=== PATIENT | female | born 1990 | race Caucasian/White ===

== ENCOUNTER 2025-04-07 15:58 | Inpatient (IN) ==
[2025-04-07] MEDS: OXYTOCIN 30 UNITS/NSS 30 UNITS/500 ML BAG IV PRN (16:00)
[2025-04-07] MEDS ORDERED: SODIUM CHLORIDE 0.9% 100 ML IV PRN (16:03)
[2025-04-07] MEDS ORDERED: HYDROCORTISONE ACETATE 25 MG SUPP PR PRN (16:06)
[2025-04-07] MEDS ORDERED: DIPHTHER/TETAN/PERTUS Vaccine (Tdap, Adol/Adult) 0.5mL IM ONE (16:06)
[2025-04-07] MEDS ORDERED: ACETAMINOPHEN 325 MG TAB PO PRN (16:06)
[2025-04-07] MEDS ORDERED: bisacodyL 10 MG SUPP PR PRN (16:06)
[2025-04-07] MEDS ORDERED: Patient's ALLERGY Info needs ENTERED STA (16:08)
[2025-04-07] MEDS: LACTATED RINGER'S 1,000 ML IV SCH (16:15)
--- NOTE | 2025-04-07 16:21 | History & Physical Report ---
Date of Service April 07, 2025 Assessment & Plan (1) Vaginal delivery: (2) hemorrhage: Plan It appears that the pph is under control at this point. ff at below u. She has a tender abd likely secondary to massage. Dilute pitocin hanging presently. Currently no need for further meds. Will run fluids, monitor vitals and uop. Check cbc and T&C for two units, on hold. Hemodynamically stable currently. History of Present Illness Chief Complaint: brought in by ambulance for pph Primary Care Provider: NO PCP Patient is a 34yowf, 7th baby, [facility]. Patient arrives by ambulance for pph. Patient was delivered by relay engineer at approximately 12 today, uncomplicated delivery, no tear, male infant. Placenta delivered without issues as well. Things were going well per certified ski patroller and bleeding controlled until she was giving pp instructions and got patient up to go to the bathroom and she dropped a large amount of blood and clot, estimated 800cc. She then cleared lots of clot from the uterus. she did not appreciate any retained products and confirmed that the placenta appeared intact. She received 400mcg cytotec po and im pitocin. She called the ambulance. By the time they arrived, the bleeding was better controlled. EMS notes her vitals are stable, was initially tachycardic, but improved and normal now. normotensive. EMS notes ebl is 1800cc. He notes she was given methergine (?). Patient notes that she is feeling well. No n/v, cp/sob, dizziness. Overall feeling better. No records available at this time. transportation coordinator is with her and notes the was uncomplicated. notes nkda meds--mag, pnv Allergies Allergy/AdvReac Type Severity Reaction Status Date / Time No Known Drug Allergies Allergy Unknown Verified 04/07/25 16:15 Patient History Medical History (Updated 04/07/25 @ 16:24 by Radha Grigsby MD, FACOG) No pertinent past medical history Surgical History (Updated 04/07/25 @ 16:24 by Radha Grigsby MD, FACOG) No pertinent past surgical history OB History This is her seventh vaginal delivery [facility] History noncontributory Physical Exam Physical Exam: bp 123/70, pulse 77 Constitutional: WD/WN, vitals as above Gastrointestinal (Abdomen): ff/nt below u Psychiatric: A+Ox3, euthymic affect Genitourinary: the perinuem is covered in blood, she is cleaned. fundal pressure gives just a trickle of blood. exam of the vagina reveals no clot, cervix is 3-4cm, can feel inside it and do not appreciate any clot. Coding Level of Care Code 01270 INT INP/OBS CARE 2/55MIN Diagnoses Vaginal delivery O80 hemorrhage O72.1
[2025-04-07] MEDS: IBUPROFEN 600 MG TAB PO PRN (16:24)
[2025-04-07 16:42] LABS: Hematocrit (blood only) 33.2 % (37.0-47.0); Hemoglobin 11.6 g/dl (12.0-16.0); Mean Corpuscular Hgb Conc 34.9 g/dL (32.0-36.0); Mean Corpuscular Volume 91.5 fL (80.0-100.0); Mean Platelet Volume 10.4 fL (9.4-12.4); Platelet Count 240 K/uL (130-400); RDW Coefficient of Variation 13.5 % (11.5-14.5); RDW Standard Deviation 45.1 fL (36.4-46.3); Red Blood Count 3.63 M/uL (4.20-5.40); White Blood Count 17.31 K/ul (4.8-10.8)
[2025-04-07 17:18] LABS: INR 0.9 (0.9-1.1); Partial Thromboplastin Ratio 0.9; Partial Thromboplastin Time 25 Seconds (21-31); Prothrombin Time 9.8 Seconds (9.0-12.0)
--- NOTE | 2025-04-07 17:41 | Obstetrical Progress Note ---
Date of Service April 07, 2025 Assessment & Plan (1) hemorrhage: (2) Vaginal delivery: Plan Patient doing very well. Hemodynamically stable. Minimal bleeding at this point. Asking when they can be d/c. Discussed it has only been 4 hours since she had her bleeding episode and although things are looking reassuring, I would prefer to watch her overnight and check cbc in the am. However, would be willing to compromise with them staying for 6 hours (10 pm) and if all looks good d/c at that time. She can of course leave at any time, but if she leaves now I would have her sign out ama. She expresses understanding. She is agreeable to staying til 10. Would like her to have an antibiotic to cover as there was several sweeps of her uterus to decrease her risk of infection, and she agrees. Subjective Patient is sore but otherwise doing well. They are wanting to leave [place]. hgb was 11.6. Physical Exam Constitutional WD/WN, vitals as above (normotensive, nl hr) Gastrointestinal (Abdomen) ff/appro tender at u Psychiatric A+Ox3, euthymic affect Results & Data Vital Signs (Past 12 Hours) Vital Signs Temp Pulse Pulse Resp BP BP Pulse Ox 04/07/25 17:27 73 04/07/25 17:27 116/70 04/07/25 17:12 83 04/07/25 17:12 114/65 04/07/25 16:57 90 04/07/25 16:57 37.6 C H 20 114/71 04/07/25 16:42 71 04/07/25 16:42 111/64 04/07/25 16:33 37.7 C H 84 20 128/72 96 04/07/25 16:27 84 04/07/25 16:27 128/72 04/07/25 16:11 77 123/70 O2 Del Method 04/07/25 17:27 04/07/25 17:27 04/07/25 17:12 04/07/25 17:12 04/07/25 16:57 04/07/25 16:57 04/07/25 16:42 04/07/25 16:42 04/07/25 16:33 Room Air 04/07/25 16:27 04/07/25 16:27 04/07/25 16:11
[2025-04-07] MEDS: Patient's HEIGHT &/or WEIGHT Needed STA (17:53)
[2025-04-07] MEDS: ceFAZolin 2000MG 2,000 MG/15 ML SYR IV STA (18:24)
[2025-04-07] MEDS ORDERED: DOCUSATE SODIUM 100 MG CAP PO SCH (21:00)
[2025-04-08] MEDS ORDERED: PRENATAL VITAMIN 1 TAB PO SCH (08:00)
[2025-04-08] MEDS ORDERED: bisacodyL 5 MG TABEC PO SCH (20:00)
--- NOTE | 2025-04-10 15:15 | Discharge Summary ---
Date of Service April 10, 2025 Admission HPI Per Admitting Provider Patient is a 34yowf, 7th baby, [facility]. Patient arrives by ambulance for pph. Patient was delivered by floor layer apprentice at approximately 12 today, uncomplicated delivery, no tear, male . Placenta delivered without issues as well. Things were going well per truck caterer and bleeding controlled until she was giving pp instructions and got patient up to go to the bathroom and she dropped a large amount of blood and clot, estimated 800cc. She then cleared lots of clot from the uterus. she did not appreciate any retained products and confirmed that the placenta appeared intact. She received 400mcg cytotec po and im pitocin. She called the ambulance. By the time they arrived, the bleeding was better controlled. EMS notes her vitals are stable, was initially tachycardic, but improved and normal now. normotensive. EMS notes ebl is 1800cc. He notes she was given methergine (?). Patient notes that she is feeling well. No n/v, cp/sob, dizziness. Overall feeling better. No records available at this time. furnace mechanic is with her and notes the was uncomplicated. notes nkda meds--mag, pnv Hospital Course (1) hemorrhage: (2) Vaginal delivery: Plan Patient was admitted. By the time she got to us, her bleeding had sinificantly decreased. She received dilute pitocin. Her fundus was firm at u, vaginal exam negative. She was monitored and continued to be hemodynamically stable. Her hgb on admission was 11.6. In a perfect would, I would recommend evaluation overnight and repeat h/h in the am as the estimated blood loss was around 1800cc. The patient wanted to leave at 2 hours. As a compromise, we watched her for six hours. She was stable at that time with minimal lochia and so was d/c home. Her floor layer apprentice noted that she would visit with her in the am and check a h/h. To call if any increased bleeding or s/s of anemia that she might need a transfusion. She will f/u in her comunity with her floor layer apprentice. Coding Level of Care Code INP/OBS EV SAME DAY LV 2,70MIN Diagnoses hemorrhage O72.1 Vaginal delivery O80
== END 2025-04-07 22:00 | disposition home or self-care (01) | DRG 776 ==
LOC: OPB 15:58 → 4S1 15:59
DX: O72.1 Other immediate postpartum hemorrhage